=== PATIENT | female | born 1970 | race Caucasian/White ===

== ENCOUNTER 2017-08-15 09:07 | Day surgery (SDC) | payer OTHER ==
[~2017-08-15] VITALS: Ht 165.1 cm; Wt 70.2 kg
[~2017-08-15 09:07] MED LIST: DAIRY RELIE3000 UNIT PO; MULTI-VITAMIN1 EAC4 PO; PROTONIX40 MG PO; VENLAFAXINE HC150 MG PO; VITAMIN D31000 UNI2 PO; ZANTAC150 MG PO
[2017-08-15 09:54] VITALS: BP 154/95
[2017-08-15] MEDS ORDERED: TYLENOL WITH C1 EACH PO (13:37)
[2017-08-15 14:50] VITALS: BP 139/93
[2017-08-15 15:47] VITALS: BP 128/88
== END 2017-08-15 15:50 | disposition home or self-care (01) ==
LOC: SDC 09:07
PROC: 0HBU0ZX Excision of Left Breast, Open Approach, Diagnostic (ICD-10-PCS; principal; 2017-08-15)
DX: N60.32 Fibrosclerosis of left breast (principal); N62 Hypertrophy of breast; K21.9 Gastro-esophageal reflux disease without esophagitis; Z88.0 Allergy status to penicillin; Z88.2 Allergy status to sulfonamides; Z88.1 Allergy status to other antibiotic agents; F17.200 Nicotine dependence, unspecified, uncomplicated
CPT/HCPCS: 88307; J0131; J1100; J1170; J1885; J2250; J2310; J2405; J3010; Q0175; S0020